=== PATIENT | female | born 1990 | race African-American/Black ===

== ENCOUNTER 2016-03-30 12:00 | Emergency (ER) | payer MEDICAID ==
[~2016-03-30] VITALS: Ht 167.6 cm; Wt 75.0 kg
[~2016-03-30 12:00] MED LIST: NAPR-576 PO
[2016-03-30 12:03] VITALS: BP 128/73; PULSE 87; RESP 14; TEMP 97.8; O2SAT 98
--- NOTE | 2016-03-30 13:06 | PD ---
HPI Chief Complaint: GI Complaint Time Seen by Provider: 12:57 Travel History International Travel<30 days: No Contact w/Intl Traveler<30days: No Traveled to known affect area: No History of Present Illness HPI 26-year-old female came to the emergency room with history of vomiting and diarrhea that started this morning. She works in [employer] and her boss asked her to come and be checked in. Patient said that there is a chance she could be . She looks to be in moderate distress and says that she has not been able to keep anything down. She is otherwise a healthy person. [facility] Past Medical History Narrative Medical List of her past medical history as reviewed from the nursing note. Hx Anticoagulant Therapy: No Autoimmune Disease: No Cardiovascular Problems: No Chemotherapy: No Cerebrovascular Accident: No Developmental Delay: No Diabetes: No Diminished Hearing: No Gastrointestinal Disorders: Yes Genitourinary: No Musculoskeletal: Yes (MULTIPLE SHOULDER DISLOCATION ) Neurologic: No Respiratory: No Immunizations Current: Yes ?: LMP: 02/27/16 : 2 Para: 1 Miscarriage: 1 : 0 Dilation and Curettage (D&C): Yes Past Surgical History Gynecologic Surgery: Yes (D&C) Hysterectomy: No Other Surgery: Yes (COLLAR BONE) Social History Alcohol Use: No Tobacco Use: Yes (2-3 CIGS/DAY) Substance Use: No Allergies-Medications (Allergen,Severity, Reaction): Coded Allergies: No Known Allergies (Verified , 06/12/15) Comments No known drug allergies. Reported Meds & Prescriptions Reported Meds & Active Scripts Active Zofran Odt (Ondansetron Odt) 4 Mg Tab 4 Mg SL Q6HR PRN Narrative Medication List of her home medications reviewed from the nursing note. Review of Systems Except as stated in HPI: all other systems reviewed are Neg Physical Exam Narrative GENERAL: Awake, alert, anxious, moderate distress SKIN: Warm and dry. HEAD: Atraumatic. Normocephalic. EYES: Pupils equal and round. No scleral icterus. No injection or drainage. ENT: No nasal bleeding or discharge. Mucous membranes pink and moist. NECK: Trachea midline. No JVD. CARDIOVASCULAR: Regular rate and rhythm. No murmur appreciated. RESPIRATORY: No accessory muscle use. Clear to auscultation. Breath sounds equal bilaterally. GASTROINTESTINAL: Abdomen soft, non-tender, nondistended. Hepatic and splenic margins not palpable. MUSCULOSKELETAL: No obvious deformities. No clubbing. No cyanosis. No edema. NEUROLOGICAL: Awake and alert. No obvious cranial nerve deficits. Motor grossly within normal limits. Normal speech. PSYCHIATRIC: Appropriate mood and affect; insight and judgment normal. Data Data Last Documented VS Vital Signs Date Time Temp Pulse Resp B/P Pulse Ox O2 Delivery O2 Flow Rate FiO2 03/30/16 16:01 100 03/30/16 12:03 97.8 87 14 128/73 Orders Basic Metabolic Panel (Bmp) (03/30/16 13:08) Complete Blood Count With Diff (03/30/16 13:08) Urinalysis - C+S If Indicated (03/30/16 13:08) Iv Access Insert/Monitor (03/30/16 13:08) Ecg Monitoring (03/30/16 13:08) Oximetry (03/30/16 13:08) Ondansetron Inj (Zofran Inj) (03/30/16 13:15) Sodium Chlor 0.9% 1000 Ml Inj (Ns 1000 M (03/30/16 13:08) Sodium Chloride 0.9% Flush (Ns Flush) (03/30/16 13:15) Beta Hcg (Quant/Titer) (03/30/16 13:08) Labs Laboratory Tests Test 03/30/16 03/30/16 14:15 15:30 White Blood Count 11.3 TH/MM3 Red Blood Count 4.34 MIL/MM3 Hemoglobin 13.4 GM/DL Hematocrit 39.8 % Mean Corpuscular Volume 91.7 FL Mean Corpuscular Hemoglobin 30.9 PG Mean Corpuscular Hemoglobin 33.7 % Concent Red Cell Distribution Width 12.6 % Platelet Count 259 TH/MM3 Mean Platelet Volume 9.2 FL Neutrophils (%) (Auto) 86.8 % Lymphocytes (%) (Auto) 9.3 % Monocytes (%) (Auto) 3.1 % Eosinophils (%) (Auto) 0.2 % Basophils (%) (Auto) 0.6 % Neutrophils # (Auto) 9.8 TH/MM3 Lymphocytes # (Auto) 1.0 TH/MM3 Monocytes # (Auto) 0.3 TH/MM3 Eosinophils # (Auto) 0.0 TH/MM3 Basophils # (Auto) 0.1 TH/MM3 CBC Comment DIFF FINAL Differential Comment Sodium Level 142 MEQ/L Potassium Level 4.0 MEQ/L Chloride Level 105 MEQ/L Carbon Dioxide Level 28.0 MEQ/L Anion Gap 9 MEQ/L Blood Urea Nitrogen 9 MG/DL Creatinine 0.66 MG/DL Estimat Glomerular Filtration 133 ML/MIN Rate Random Glucose 95 MG/DL Calcium Level 8.6 MG/DL Human Chorionic Gonadotropin, LESS THAN 1 Quant MIU/ML Urine Color YELLOW Urine Turbidity HAZY Urine pH 7.0 Urine Specific [place] 1.020 Urine Protein NEG mg/dL Urine Glucose (UA) NEG mg/dL Urine Ketones NEG mg/dL Urine Occult Blood NEG Urine Nitrite NEG Urine Bilirubin NEG Urine Urobilinogen LESS THAN 2.0 MG/DL Urine Leukocyte Esterase TRACE Urine RBC 1 /hpf Urine WBC 3 /hpf Urine Squamous Epithelial 7 /hpf Cells Urine Mucus FEW /lpf Microscopic Urinalysis Comment CULT NOT INDICATED MDM Medical Decision Making Medical Screen Exam Complete: Yes Emergency Medical Condition: Yes Medical Record Reviewed: Yes Differential Diagnosis Acute gastroenteritis, viral illness, food poisoning Narrative Course 2:12 PM patient is getting IV fluid and IV Zofran. Awaiting for the blood test and result. If all her test results are within normal limits she will be discharged home. 3:34 PM patient has not vomited any after the fluid was started and Zofran given. Currently the fluid is finished and patient wants something to drink. She is getting a by mouth challenge with water. If she keeps it down she will be discharged home. Blood test results are within normal limit. She's not . Procedures EKG Prior to Arrival: No Diagnosis Primary Impression: Acute gastroenteritis Referrals: Primary Care Physician 2 days Additional Instructions: Follow-up with your primary care in couple days. Take medication as per the prescription direction. Do not go back to work today his symptoms of vomiting and diarrhea have fully resolved. Med/Other Pt SpecificInfo: Prescription(s) given Scripts Ondansetron Odt (Zofran Odt)4 Mg Tab4 Mg SL Q6HR PRN (Nausea/Vomiting) #15 TAB Ref 0 Prov:Omaira Moser MD 03/30/16 Disposition: 01 DISCHARGE HOME Condition: Stable Omaira Moser MD Mar 30, 2016 13:06
[2016-03-30] MEDS ORDERED: SODIUM CHLOR 0.9% 1000 ML INJ 1,000 ML IV SCH (13:08)
[2016-03-30] MEDS ORDERED: ONDANSETRON HCL 4 MG/2 ML VIAL IVP ONE (13:15)
[2016-03-30] MEDS ORDERED: SODIUM CHLORIDE 0.9% FLUSH 5 ML FLUSH IVF PRN (13:15)
[2016-03-30 14:35] LABS: AUTOMATED NEUTROPHIL # 9.8 TH/MM3 (1.8-7.7); BASOPHIL # 0.1 TH/MM3 (0-0.2); BASOPHIL % 0.6 % (0.0-2.0); EOSINOPHIL % 0.2 % (0.0-4.0); HEMATOCRIT 39.8 % (35.0-46.0); HEMO FLAGS DIFF FINAL; LYMPH % 9.3 % (9.0-44.0); MEAN CELL VOLUME 91.7 FL (80.0-100.0); MEAN CORPUSCULAR HEMOGLOBIN 30.9 PG (27.0-34.0); MEAN CORPUSCULAR HGB CONC 33.7 % (32.0-36.0); MONO % 3.1 % (0.0-8.0); NEUT % 86.8 % (16.0-70.0); PLATELET COUNT 259 TH/MM3 (150-450); RED BLOOD COUNT 4.34 MIL/MM3 (4.00-5.30); RED CELL DISTRIBUTION WIDTH 12.6 % (11.6-17.2); WHITE BLOOD COUNT 11.3 TH/MM3 (4.0-11.0)
[2016-03-30 15:04] LABS: ANION GAP 9 MEQ/L (5-15); BLOOD UREA NITROGEN 9 MG/DL (7-18); CHLORIDE 105 MEQ/L (98-107); GLOMERULAR FILTRATION RATE 133 ML/MIN (>89); SODIUM (NA) 142 MEQ/L (136-145)
[2016-03-30 15:07] LABS: BETA HCG QUANT LESS THAN 1 MIU/ML (0-5)
[2016-03-30] MEDS ORDERED: ZOFR4TAB3 SL (15:39)
[2016-03-30 15:40] LABS: BLOOD, URINE NEG (NEG); COMMENT (UR) CULT NOT INDICATED; CULTURE IF INDICATED CULT NOT INDICATED; GLUCOSE,URINE NEG (NEG); KETONE, URINE NEG (NEG); MUCUS URINE FEW /lpf (OCC); NITRITE,URINE NEG (NEG); SQUAMOUS EPITHELIAL CELL URINE 7 /hpf (0-5); URINE COLOR YELLOW (YELLW/STRAW)
== END 2016-03-30 16:06 | disposition home or self-care (01) ==
LOC: NEPC 12:00
DX: K52.9 Noninfective gastroenteritis and colitis, unspecified (principal)
CPT/HCPCS: 80048; 81001; 84702; 85025; 96361; 96374; 99284; J2405; J7030

== ENCOUNTER 2016-09-28 17:42 | Emergency (ER) | payer MEDICAID ==
[~2016-09-28 17:42] MED LIST changes: -NAPR-576 PO; +ZOFR4TAB3 SL
[2016-09-28 17:44] VITALS: BP 139/69; PULSE 92; RESP 20; TEMP 98.6; O2SAT 99
[2016-09-28 18:56] LABS: BLOOD, URINE NEG (NEG); COMMENT (UR) CULT NOT INDICATED; CULTURE IF INDICATED CULT NOT INDICATED; GLUCOSE,URINE NEG (NEG); KETONE, URINE NEG (NEG); MUCUS URINE FEW /lpf (OCC); NITRITE,URINE NEG (NEG); SQUAMOUS EPITHELIAL CELL URINE 2 /hpf (0-5); URINE COLOR YELLOW (YELLW/STRAW)
--- NOTE | 2016-09-28 19:56 | PD ---
HPI Chief Complaint: Abdominal Pain Time Seen by Provider: 18:23 Travel History International Travel<30 days: No Contact w/Intl Traveler<30days: No Traveled to known affect area: No History of Present Illness HPI Patient's a 26-year-old female presenting to emergency evaluation of lower abdominal and epigastric pain for the last 3-4 weeks. There are no alleviating or exacerbating factors, she denies any nausea, vomiting, fever, chills, diarrhea. Patient reports coming in because her boss told her to come get checked out and stopped being a hero. Abrasion denies any dysuria, vaginal discharge. She states that her menstrual cycle started on Friday and ended on Friday. She states that normally last 6 days. She has no other complaints at this time. [facility] Past Medical History Medical History: Denies Significant Hx Gastrointestinal Disorders: Yes Musculoskeletal: Yes (MULTIPLE SHOULDER DISLOCATION ) Neurologic: Yes (SMALL BENIGN BRAIN TUMOR ) Respiratory: No Immunizations Current: No Tetanus Vaccination: < 5 Years Influenza Vaccination: No ?: Unknown LMP: 09/27/16 : 2 Para: 1 Miscarriage: 1 : 0 Dilation and Curettage (D&C): Yes Past Surgical History Gynecologic Surgery: Yes (D&C) Hysterectomy: No Other Surgery: Yes (COLLAR BONE) Social History Alcohol Use: No Tobacco Use: Yes (1PPD) Substance Use: No Allergies-Medications (Allergen,Severity, Reaction): Coded Allergies: No Known Allergies (Verified , 06/12/15) Reported Meds & Prescriptions Reported Meds & Active Scripts Active No Active Prescriptions or Reported Medications Review of Systems Except as stated in HPI: all other systems reviewed are Neg Eyes: No: Blurred Vision HENT: No: Headaches, Sore Throat Cardiovascular: No: Chest Pain or Discomfort Respiratory: No: Shortness of Breath Gastrointestinal: Positive: Abdominal Pain, No: Nausea, Vomiting, Diarrhea, Changes in Bowel Habits Genitourinary: Positive: Dysmenorrhea, No: Dysuria Musculoskeletal: No: Myalgias Physical Exam Narrative GENERAL: Overweight, well-appearing, alert female. Resting comfortably in no acute distress. SKIN: Warm and dry. HEAD: Atraumatic. Normocephalic. EYES: Pupils equal and round. No scleral icterus. No injection or drainage. ENT: No nasal bleeding or discharge. Mucous membranes pink and moist. NECK: Trachea midline. No JVD. CARDIOVASCULAR: Regular rate and rhythm. RESPIRATORY: No accessory muscle use. Clear to auscultation. Breath sounds equal bilaterally. GASTROINTESTINAL: Abdomen soft, non-tender, nondistended. Hepatic and splenic margins not palpable. Positive Bowel sounds, no rebound, no guarding. MUSCULOSKELETAL: Extremities without clubbing, cyanosis, or edema. No obvious deformities. NEUROLOGICAL: Awake and alert. No obvious cranial nerve deficits. Motor grossly within normal limits. Five out of 5 muscle strength in the arms and legs. Normal speech. PSYCHIATRIC: Appropriate mood and affect; insight and judgment normal. Data Data Last Documented VS Vital Signs Date Time Temp Pulse Resp B/P Pulse Ox O2 Delivery O2 Flow Rate FiO2 09/28/16 17:44 98.6 92 20 139/69 99 Room Air Orders Urinalysis - C+S If Indicated (09/28/16 18:12) Ed Urine Pregnancytest Poc (09/28/16 18:12) Beta Hcg (Quant/Titer) (09/28/16 18:43) Labs Laboratory Tests Test 09/28/16 09/28/16 18:25 19:15 Urine Color YELLOW Urine Turbidity CLEAR Urine pH 6.0 Urine Specific [place] 1.029 Urine Protein TRACE mg/dL Urine Glucose (UA) NEG mg/dL Urine Ketones NEG mg/dL Urine Occult Blood NEG Urine Nitrite NEG Urine Bilirubin NEG Urine Urobilinogen 2.0 MG/DL Urine Leukocyte Esterase TRACE Urine WBC 2 /hpf Urine Squamous Epithelial 2 /hpf Cells Urine Mucus FEW /lpf Microscopic Urinalysis Comment CULT NOT INDICATED Human Chorionic Gonadotropin, LESS THAN 1 Quant MIU/ML MDM Medical Decision Making Medical Screen Exam Complete: Yes Emergency Medical Condition: Yes Interpretation(s) Laboratory Tests Test 09/28/16 18:25 Urine Color YELLOW Urine Turbidity CLEAR Urine pH 6.0 Urine Specific [place] 1.029 Urine Protein TRACE mg/dL Urine Glucose (UA) NEG mg/dL Urine Ketones NEG mg/dL Urine Occult Blood NEG Urine Nitrite NEG Urine Bilirubin NEG Urine Urobilinogen 2.0 MG/DL Urine Leukocyte Esterase TRACE Urine WBC 2 /hpf Urine Squamous Epithelial 2 /hpf Cells Urine Mucus FEW /lpf Microscopic Urinalysis Comment CULT NOT INDICATED Vital Signs Date Time Temp Pulse Resp B/P Pulse Ox O2 Delivery O2 Flow Rate FiO2 09/28/16 17:44 98.6 92 20 139/69 99 Room Air Differential Diagnosis UTI versus irritable bowel versus versus dysmenorrhea versus other Narrative Course Patient is a 26-year-old female presenting for evaluation of abdominal pain that has been ongoing for several weeks. Presentation today is because her boss encouraged her to get checked out, there has been no exacerbation or change in her symptoms over the last 3 weeks. She does report that her menstrual cycle on the lasted one day this month and normally lasts 6. POC test is negative. Patient states that she was twice before and the urine test did not detect it. Beta hCG ordered. Urinalysis is unremarkable. Abdominal exam is benign, patient is resting comfortably, she was witnessed eating potato chips in triage, she is tolerating food and fluids without difficulty. HCG is unremarkable. Patient is encouraged to follow-up with her primary doctor. She was given strict return precautions. She verbalized understanding of instructions. Patient stable for discharge. Diagnosis Primary Impression: Abdominal discomfort Referrals: [employer] Examiner Primary Care Physician Patient Instructions: Abdominal Pain (ED), General Instructions Additional Instructions: Follow-up with your primary doctor Keep a food diary to see if any foods exacerbate her symptoms Return to emergency department immediately for any new or worsening symptoms Med/Other Pt SpecificInfo: No Change to Meds Scripts No Active Prescriptions or Reported Meds Disposition: 01 DISCHARGE HOME Condition: Stable Shira Pulido Sep 28, 2016 19:56
[2016-09-28 20:30] LABS: BETA HCG QUANT LESS THAN 1 MIU/ML (0-5)
== END 2016-09-28 21:33 | disposition home or self-care (01) ==
LOC: NEPD 17:42
DX: R10.13 Epigastric pain (principal)
CPT/HCPCS: 81001; 84702; 84703; 99283

== ENCOUNTER 2016-10-19 20:09 | Observation (INO) | payer MEDICAID ==
[~2016-10-19] VITALS: Ht 167.6 cm; Wt 81.7 kg
[2016-10-19 20:12] VITALS: BP 133/76; PULSE 93; RESP 16; TEMP 98.5; O2SAT 100
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
[2016-10-19] MEDS ORDERED: MORPHINE SULFATE 4 MG/ML INJ IV PUSH ONE (23:00)
[2016-10-19] MEDS ORDERED: ONDANSETRON HCL 4 MG/2 ML VIAL IV PUSH ONE (23:00)
[2016-10-19] MEDS ORDERED: MAGNESIUM HYDROXIDE SUSP 30 ML CUP PO PRN (23:15)
[2016-10-19] MEDS ORDERED: BISACODYL 10 MG SUPP RECTAL PRN (23:15)
[2016-10-19] MEDS ORDERED: SENNOSIDES 8.6 MG TAB PO PRN (23:15)
[2016-10-19] MEDS ORDERED: ACETAMINOPHEN 325 MG TAB PO PRN (23:15)
[2016-10-19] MEDS ORDERED: ONDANSETRON HCL 4 MG/2 ML VIAL IVP PRN (23:15)
[2016-10-19] MEDS ORDERED: LACTULOSE SYRUP 20 GM/30 ML CUP PO PRN (23:15)
[2016-10-19] MEDS ORDERED: SODIUM CHLORIDE 0.9% FLUSH 10 ML FLUSH IV FLUSH PRN (23:15)
[2016-10-19] MEDS ORDERED: ACETAMINOPHEN/HYDROcodone 325 MG/5 MG TAB PO PRN (23:15)
[2016-10-20 00:01] LABS: BASOPHIL % 0.3 % (0.0-2.0); EOSINOPHIL # 0.1 TH/MM3 (0-0.4); EOSINOPHIL % 0.6 % (0.0-4.0); HEMO FLAGS DIFF FINAL; LYMPHOCYTE # 2.1 TH/MM3 (1.0-4.8); MEAN CELL VOLUME 92.2 FL (80.0-100.0); MEAN CORPUSCULAR HEMOGLOBIN 32.3 PG (27.0-34.0); MONO % 6.4 % (0.0-8.0); NEUT % 77.7 % (16.0-70.0); PLATELET COUNT 249 TH/MM3 (150-450); RED BLOOD COUNT 4.12 MIL/MM3 (4.00-5.30); RED CELL DISTRIBUTION WIDTH 12.2 % (11.6-17.2); WHITE BLOOD COUNT 14.2 TH/MM3 (4.0-11.0)
[2016-10-20] MEDS: SODIUM CHLOR 0.9% 1000 ML INJ 1,000 ML IV SCH ×3 (00:01→19:15)
[2016-10-20 00:07] LABS: BICARBONATE 23.5 MEQ/L (21.0-32.0); POTASSIUM 4.7 MEQ/L (3.5-5.1)
[2016-10-20 00:41] LABS: APTT (PATIENT) 23.4 SEC (24.3-30.1); INTERNATIONAL NORMALIZED RATIO 0.9 RATIO; PROTHROMBIN TIME - PATIENT 10.2 SEC (9.8-11.6)
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
[2016-10-20] MEDS: MORPHINE SULFATE 4 MG/ML INJ IV PRN ×2 (03:12→07:45)
[2016-10-20 03:16] VITALS: BP 139/74; PULSE 73; RESP 18; O2SAT 99
[2016-10-20 04:06] VITALS: BP 123/68; PULSE 73; RESP 17; TEMP 96.6; O2SAT 98
[2016-10-20 08:00] VITALS: BP 116/73; PULSE 74; RESP 16; TEMP 96.7; O2SAT 97
[2016-10-20 08:26] LABS: BASOPHIL % 0.2 % (0.0-2.0); EOSINOPHIL # 0.1 TH/MM3 (0-0.4); EOSINOPHIL % 1.2 % (0.0-4.0); HEMATOCRIT 36.6 % (35.0-46.0); HEMO FLAGS DIFF FINAL; LYMPH % 19.2 % (9.0-44.0); LYMPHOCYTE # 2.1 TH/MM3 (1.0-4.8); MEAN CELL VOLUME 92.8 FL (80.0-100.0); MEAN CORPUSCULAR HEMOGLOBIN 31.6 PG (27.0-34.0); MEAN CORPUSCULAR HGB CONC 34.1 % (32.0-36.0); MONO % 7.9 % (0.0-8.0); NEUT % 71.5 % (16.0-70.0); PLATELET COUNT 221 TH/MM3 (150-450); RED BLOOD COUNT 3.95 MIL/MM3 (4.00-5.30); RED CELL DISTRIBUTION WIDTH 12.3 % (11.6-17.2); WHITE BLOOD COUNT 11.2 TH/MM3 (4.0-11.0)
[2016-10-20 08:52] LABS: ALKALINE PHOSPHATASE 50 U/L (45-117); ALT (GPT) 21 U/L (10-53); ANION GAP 8 MEQ/L (5-15); AST (GOT) 14 U/L (15-37); BICARBONATE 26.9 MEQ/L (21.0-32.0); BLOOD UREA NITROGEN 11 MG/DL (7-18); CHLORIDE 103 MEQ/L (98-107); GLOMERULAR FILTRATION RATE 164 ML/MIN (>89); POTASSIUM 3.5 MEQ/L (3.5-5.1); SODIUM (NA) 138 MEQ/L (136-145); TOTAL BILIRUBIN ADULT 0.5 MG/DL (0.2-1.0)
[2016-10-20] MEDS ORDERED: SODIUM CHLORIDE 0.9% FLUSH 10 ML FLUSH IV FLUSH SCH (09:00)
[2016-10-20] MEDS ORDERED: DOCUSATE SODIUM 50 MG/SENNA 8.6 MG TAB PO SCH (09:00)
[2016-10-20 09:30] VITALS: PULSE 77
[2016-10-20] MEDS ORDERED: SODIUM CHLORID 0.9% 500 ML IV PRN (10:00)
[2016-10-20] MEDS ORDERED: INSULIN HUMAN REGULAR 1,000 UNITS/10 ML VIAL SQ PRN (10:00)
[2016-10-20] MEDS ORDERED: POVIDONE IODINE 5% (ANTISEPSIS KIT) 4 APPLICATIONS EACH NARE PRN (10:00)
[2016-10-20] MEDS ORDERED: CHLORHEXIDINE GLUCONATE 2 % 1 PACK (2 CLOTHS) TOPICAL PRN (10:00)
[2016-10-20] MEDS ORDERED: LACTATED RINGER'S 1000 ML IV PRN (10:00)
[2016-10-20] MEDS ORDERED: METOPROLOL TARTRATE 25 MG TAB PO PRN (10:00)
[2016-10-20] MEDS ORDERED: GENTAMICIN SULFATE 80 MG/2 ML VIAL ONE (10:19)
[2016-10-20] MEDS ORDERED: ceFAZolin 2 GM PREMIX 50 ML ONE (10:19)
[2016-10-20] MEDS ORDERED: VANCOMYCIN HCL 1000 MG VIAL ONE (10:20)
[2016-10-20] MEDS ORDERED: MIDAZOLAM HCL 2 MG/2 ML VIAL ONE (10:34)
[2016-10-20] MEDS ORDERED: fentaNYL CITRATE 250 MCG/5 ML AMP ONE (10:34)
[2016-10-20] MEDS ORDERED: HYDR-3288 PO (11:35)
--- NOTE | 2016-10-20 11:55 | RADRPT ---
EXAM DATE/TIME: 10/20/2016 11:21 [facility] COMPARISON: WRIST RIGHT COMPLETE ([id number]), October 19, 2016, 21:49. INDICATIONS : Surgical repair. MEDICAL HISTORY : None. SURGICAL HISTORY : None. ENCOUNTER: Initial ACUITY: 1 day PAIN SCORE: Non-responsive. LOCATION: Right distal radius. FINDINGS: 2 spot fluoroscopic images obtained of the mid forearm in the operating room document placement of a radial side plate with 6 interlocking screws traversing the fracture. There is improved anatomic alig nment.CONCLUSION: Improved anatomic alignment following right radius ORIF. Jett Mcmillan MD on October 20, 2016 at 11:53 Board Certified Radiologist. This report was verified electronically.
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
[2016-10-20] MEDS ORDERED: LACTATED RINGER'S 1000 ML INJ 1,000 ML IV SCH (12:00)
[2016-10-20] MEDS ORDERED: DO NOT ADM ANY ANTICOAGULANT DRUGS PRN (12:00)
[2016-10-20] MEDS ORDERED: MORPHINE SULFATE 4 MG/ML INJ IV PRN (12:15)
[2016-10-20 12:49] VITALS: BP 121/82; PULSE 77; RESP 18; TEMP 97.2; O2SAT 100
[2016-10-20] MEDS ORDERED: PHENYLEPH/NS 1000 MCG/10 ML SYR IV ONE (14:11)
[2016-10-20] MEDS ORDERED: PROPOFOL 200 MG/20 ML AMP IV ONE (14:11)
[2016-10-20] MEDS ORDERED: ePHEDrine/NS 25 MG/5 ML SYR IV ONE (14:11)
[2016-10-20] MEDS ORDERED: ONDANSETRON HCL 4 MG/2 ML VIAL IV PUSH ONE (14:12)
[2016-10-20] MEDS: ACETAMINOPHEN/HYDROcodone 325 MG/7.5 MG TAB PO PRN ×2 (14:14→19:20)
[2016-10-20 16:00] VITALS: BP 117/63; PULSE 77; RESP 18; TEMP 97.3; O2SAT 100
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
--- NOTE | 2016-10-20 17:30 | HHI.DCPOC ---
Discharge Care Plan Diagnosis: (1) Right forearm fracture (2) Tobacco abuse (3) Leukocytosis Goals to Promote Your Health * To prevent worsening of your condition and complications * To maintain your health at the optimal level Directions to Meet Your Goals Take your medications as prescribed Follow your dietary instruction Follow activity as directed Keep your appointments as scheduled Take your immunizations and boosters as scheduled If your symptoms worsen call your PCP, if no PCP go to Urgent Care Center or Emergency Room Smoking is Dangerous to Your Health. Avoid second hand smoke Call the 24-hour hour crisis hotline for domestic abuse at Pancho Marin MD Oct 20, 2016 17:30
== END 2016-10-20 19:46 | disposition home or self-care (01) ==
LOC: NEPD 20:09 → NEDA 22:57 → N06A 10-20 03:22
PROVIDERS: ADMIT Hospitalist; ATTEND Hospitalist
DX: S52.301A Unspecified fracture of shaft of right radius, initial encounter for closed fracture (principal); D72.829 Elevated white blood cell count, unspecified; F17.200 Nicotine dependence, unspecified, uncomplicated; V86.99XA Unspecified occupant of other special all-terrain or other off-road motor vehicle injured in nontraffic accident, initial encounter
CPT/HCPCS: 01830; 25515; 29125; 73100; 73110; 76000; 80048; 80053; 84703; 85025; 85610; 85730; 96361; 96374; 96375; 96376; 99285; C1713; G0378; J0690; J1580; J2250; J2270; J2370; J2405; J3010; J3370; J7030; J7120

== ENCOUNTER 2017-08-09 14:16 | Emergency (ER) | payer MEDICAID ==
[~2017-08-09] VITALS: Ht 165.1 cm; Wt 89.5 kg
[~2017-08-09 14:16] MED LIST changes: +HYDR-3288 PO; -ZOFR4TAB3 SL
[2017-08-09 14:27] VITALS: BP 143/65; PULSE 89; RESP 18; TEMP 98.5; O2SAT 93
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
[2017-08-09] MEDS ORDERED: PROPARACAINE HCL 0.5% OPHT SOLN 15 ML BTL LEFT EYE ONE (15:15)
[2017-08-09] MEDS ORDERED: IBUP1TAB7 PO (15:17)
[2017-08-09] MEDS ORDERED: CIPR0.3S2 LEFT EYE (15:17)
== END 2017-08-09 15:32 | disposition home or self-care (01) ==
LOC: PHEFT 14:16
DX: H57.8 Other specified disorders of eye and adnexa (principal); F17.200 Nicotine dependence, unspecified, uncomplicated
CPT/HCPCS: 99283